=== PATIENT | male | born 1945 | race Caucasian/White ===

== ENCOUNTER → 2018-04-10 | Outpatient (CLI) | payer OTHER | END | disposition home or self-care (01) | LOC: CVU 14:05 | PROVIDERS: ATTEND Internal Medicine Cardiovascular Disease | DX: I08.1 Rheumatic disorders of both mitral and tricuspid valves (principal) | CPT/HCPCS: 93306 ==

== ENCOUNTER → 2018-10-29 | Outpatient (CLI) | payer OTHER | END | disposition home or self-care (01) | LOC: CVU 09:50 | PROVIDERS: ATTEND Internal Medicine Cardiovascular Disease | DX: I08.0 Rheumatic disorders of both mitral and aortic valves (principal); I48.91 Unspecified atrial fibrillation; Z87.891 Personal history of nicotine dependence | CPT/HCPCS: 93306 ==

== ENCOUNTER 2019-05-18 11:45 | Emergency (ER) | payer MEDICARE ==
[~2019-05-18] VITALS: Ht 175.3 cm; Wt 108.3 kg
[2019-05-18 11:53] VITALS: BP 121/63
== END 2019-05-18 13:28 | disposition home or self-care (01) ==
LOC: ED 13:22
DX: S61.216A Laceration without foreign body of right little finger without damage to nail, initial encounter (principal); I48.91 Unspecified atrial fibrillation; W26.0XXA Contact with knife, initial encounter; Y93.89 Activity, other specified; Y92.009 Unspecified place in unspecified non-institutional (private) residence as the place of occurrence of the external cause; Y99.8 Other external cause status
CPT/HCPCS: 12041; 99284

== ENCOUNTER 2019-05-19 06:32 | Emergency (ER) | payer MEDICARE ==
[~2019-05-19] VITALS: Ht 175.3 cm; Wt 103.1 kg
[2019-05-19 06:42] VITALS: BP 149/83
== END 2019-05-19 08:52 | disposition home or self-care (01) ==
LOC: ED 08:40
DX: S61.216A Laceration without foreign body of right little finger without damage to nail, initial encounter (principal); I48.91 Unspecified atrial fibrillation; E11.9 Type 2 diabetes mellitus without complications; Z87.891 Personal history of nicotine dependence; X58.XXXA Exposure to other specified factors, initial encounter; Y93.89 Activity, other specified; Y92.89 Other specified places as the place of occurrence of the external cause; Y99.8 Other external cause status
CPT/HCPCS: 12001; 36415; 85025; 85610; 99283

== ENCOUNTER 2019-08-02 09:19 | Day surgery (SDC) | payer MEDICARE ==
[~2019-08-02] VITALS: Ht 176.5 cm; Wt 102.3 kg
[2019-08-02 09:37] VITALS: BP 121/62
[2019-08-02] MEDS ORDERED: ROSU10TA2 PO (09:37)
[2019-08-02] MEDS ORDERED: GLIP10TA13 PO (09:37)
[2019-08-02] MEDS ORDERED: LISI40TA PO (09:37)
[2019-08-02] MEDS ORDERED: DULA1.5P SQ (09:37)
[2019-08-02] MEDS ORDERED: WARF-36 PO (09:37)
[2019-08-02] MEDS ORDERED: TIMO5DRO28 OP (09:37)
[2019-08-02] MEDS ORDERED: EMPA1TAB3 PO (09:37)
[2019-08-02] MEDS ORDERED: VERA180T6 PO (09:37)
[2019-08-02] MEDS ORDERED: CARV-39 PO (09:37)
[2019-08-02] MEDS ORDERED: METF500T17 PO (09:37)
[2019-08-02] MEDS ORDERED: DIGO125T PO (09:37)
[2019-08-02] MEDS ORDERED: PROPOFOL 10 MG/ML, 20ML ONE (10:20)
[2019-08-02] MEDS ORDERED: SODIUM CHLORIDE 0.9% 1,000 ML IV SCH (11:00)
== END 2019-08-02 12:14 | disposition home or self-care (01) ==
LOC: CACL 09:19
PROVIDERS: ATTEND Internal Medicine Cardiovascular Disease
DX: I08.3 Combined rheumatic disorders of mitral, aortic and tricuspid valves (principal); I70.0 Atherosclerosis of aorta; I10 Essential (primary) hypertension; I48.20 Chronic atrial fibrillation, unspecified; I45.19 Other right bundle-branch block; E11.65 Type 2 diabetes mellitus with hyperglycemia; E78.49 Other hyperlipidemia; E66.01 Morbid (severe) obesity due to excess calories; Z68.36 Body mass index [BMI] 36.0-36.9, adult; Z79.01 Long term (current) use of anticoagulants; Z79.84 Long term (current) use of oral hypoglycemic drugs; Z79.899 Other long term (current) drug therapy; Z98.890 Other specified postprocedural states
CPT/HCPCS: 93312; 93321; 93325; J2704

== ENCOUNTER → 2019-08-30 | Outpatient (CLI) | payer MEDICARE ==
[~2019-08-30] MED LIST: CARV-39 PO; DIGO125T PO; DULA1.5P SQ; EMPA1TAB3 PO; GLIP10TA13 PO; LISI40TA PO; METF500T17 PO; REGADENOSON 0.4 MG/5 ML SYRINGE ONE; ROSU10TA2 PO; TIMO5DRO28 OP; VERA180T6 PO; WARF-36 PO
== END | disposition home or self-care (01) ==
LOC: CFH 08:11
PROVIDERS: ATTEND Internal Medicine Cardiovascular Disease
DX: I21.19 ST elevation (STEMI) myocardial infarction involving other coronary artery of inferior wall (principal); I35.9 Nonrheumatic aortic valve disorder, unspecified; I48.91 Unspecified atrial fibrillation; Z87.891 Personal history of nicotine dependence
CPT/HCPCS: 78452; 93017; A9502; J2785

== ENCOUNTER 2019-11-10 10:26 | Day surgery (SDC) | payer MEDICARE ==
[~2019-11-10] VITALS: Ht 175.3 cm; Wt 102.7 kg
[~2019-11-10 10:26] MED LIST changes: -DIGO125T PO; +DIGO125T85 PO; -REGADENOSON 0.4 MG/5 ML SYRINGE ONE
[2019-11-10] MEDS ORDERED: DIGO125T85 PO (10:50)
[2019-11-10] MEDS ORDERED: CARV25TA12 PO (10:50)
[2019-11-10 10:52] VITALS: BP 127/68
[2019-11-10 11:33] LABS: INTERNATIONAL NORMALIZED RATIO 1.15 (0.93-1.1); PROTHROMBIN TIME 12.2 Seconds (9.6-11.5)
[2019-11-10] MEDS ORDERED: FENTANYL PF 100 MCG/2ML ONE (13:00)
[2019-11-10] MEDS ORDERED: MIDAZOLAM 1 MG/ML, 5ML ONE (13:00)
[2019-11-10] MEDS ORDERED: LIDOCAINE 2%, 20ML ONE (13:01)
== END 2019-11-10 20:35 | disposition home or self-care (01) ==
LOC: CACL 10:26 → 5SO 15:44 → CACL 20:35
PROVIDERS: ATTEND Internal Medicine Cardiovascular Disease
DX: I25.10 Atherosclerotic heart disease of native coronary artery without angina pectoris (principal); E11.9 Type 2 diabetes mellitus without complications; I34.0 Nonrheumatic mitral (valve) insufficiency; I48.91 Unspecified atrial fibrillation; E78.5 Hyperlipidemia, unspecified; I10 Essential (primary) hypertension; I45.19 Other right bundle-branch block; Z79.01 Long term (current) use of anticoagulants; Z87.891 Personal history of nicotine dependence; Z79.84 Long term (current) use of oral hypoglycemic drugs
CPT/HCPCS: 36415; 85610; 93454; 99156; 99157; C1769; C1894; J2250; J3010; Q9967; G0378

== ENCOUNTER → 2020-01-19 | Outpatient (CLI) | payer MEDICARE ==
[~2020-01-19] MED LIST changes: +ACET325T26 PO; +ASPI81TA45 PO; +CARV25TA12 PO; +FURO40TA6 PO; +POTA20TA89 PO
== END | disposition home or self-care (01) ==
LOC: RAD 10:13
PROVIDERS: ATTEND Internal Medicine Cardiovascular Disease
DX: J96.00 Acute respiratory failure, unspecified whether with hypoxia or hypercapnia (principal); I48.91 Unspecified atrial fibrillation
CPT/HCPCS: 71046

== ENCOUNTER → 2020-02-03 | Outpatient (CLI) | payer MEDICARE | END | disposition home or self-care (01) | LOC: CFH 13:12 | PROVIDERS: ATTEND Internal Medicine Cardiovascular Disease | DX: I36.1 Nonrheumatic tricuspid (valve) insufficiency (principal); I45.19 Other right bundle-branch block | CPT/HCPCS: 93306 ==

== ENCOUNTER → 2021-04-02 | Outpatient (CLI) | payer MEDICARE ==
[~2021-04-02] MED LIST changes: -LISI40TA PO; +LISI40TA9 PO
== END | disposition home or self-care (01) ==
LOC: CFH 12:34
PROVIDERS: ATTEND Internal Medicine Cardiovascular Disease
DX: I36.1 Nonrheumatic tricuspid (valve) insufficiency (principal)
CPT/HCPCS: 93306